=== PATIENT | male | born 1990 | race Two or more races ===

== ENCOUNTER 2022-05-26 15:22 | Inpatient (IN) | payer OTHER ==
[~2022-05-26] VITALS: Ht 172.7 cm; Wt 87.3 kg
[2022-05-26 18:01] LABS: COVID AG,FIA SOURCE NASOPHARYNGEAL
[2022-05-26 18:12] LABS: BASOPHILS % (AUTO) 0.7 % (0.0-2.0); HEMATOCRIT 47.3 % (41-53); HEMOGLOBIN 16.1 g/dL (13.5-17.5); LYMPHOCYTES # (AUTO) 1.3 K/uL (1.0-4.8); LYMPHOCYTES % (AUTO) 24.6 % (22.0-44.0); MEAN CORPUSCULAR HEMOGLOBIN 29.6 pg (26.0-34.0); MEAN CORPUSCULAR VOLUME 87 fL (80-100); MONOCYTES # (AUTO) 0.4 K/uL (0.1-1.0); MONOCYTES % (AUTO) 7.3 % (2.0-9.0); NEUTROPHILS # (AUTO) 3.6 K/uL (1.8-7.7); NEUTROPHILS % (AUTO) 66.4 % (40.0-70.0); PLATELET COUNT (AUTO) 221 K/uL (150-450); RED BLOOD CELL COUNT(AUTO) 5.44 MIL/uL (4.50-5.90); RED CELL DISTRIBUTION WIDTH 13.9 % (11.5-14.5)
[2022-05-26 18:26] LABS: ANION GAP 12 mmol/L (8-16); CALCIUM, TOTAL 8.9 mg/dL (8.8-10.5); CARBON DIOXIDE 27 mmol/L (22-29); CHLORIDE 104 mmol/L (98-107); CREATININE 1.07 mg/dL (0.60-1.30); GLUCOSE,RANDOM 141 mg/dL (70-110); POTASSIUM 3.9 mmol/L (3.5-5.1); SODIUM SERUM 143 mmol/L (136-145); UREA NITROGEN, BLOOD 11 mg/dL (7-18)
[2022-05-26 18:30] LABS: GLOMERULAR FILTR. RATE CALC > 60 mL/min (>60)
[2022-05-26 18:32] LABS: ALANINE AMINOTRANSFERASE 39 U/L (12-78); ALBUMIN 3.9 g/dL (3.4-5.0); ALKALINE PHOSPHATASE 97 U/L (46-116); ASPARTATE AMINOTRANSFERASE 18 U/L (15-37); BILIRUBIN,TOTAL 0.4 mg/dL (0.1-1.0); TOTAL PROTEIN, SERUM 7.1 g/dL (6.4-8.2)
[2022-05-26] MEDS ORDERED: ONDANSETRON HCL 4 MG/2 ML VIAL IVP PRN ×2 (20:30)
[2022-05-26] MEDS ORDERED: MELATONIN 5 MG TABLET PO PRN (20:30)
[2022-05-26] MEDS ORDERED: ACETAMINOPHEN 325 MG TABLET PO PRN (20:30)
[2022-05-26] MEDS: HEPARIN SODIUM,PORCINE 5,000 UNITS/ML VIAL SQ SCH (23:21)
[2022-05-27 08:30] VITALS: BP 117/83
[2022-05-27] MEDS: HEPARIN SODIUM,PORCINE 5,000 UNITS/ML VIAL SQ SCH ×3 (09:45→23:59)
[2022-05-27] MEDS ORDERED: SODIUM CHLORIDE 3% 15 ML NEB SOLUTION NEB ONE (13:11)
[2022-05-27 17:11] VITALS: BP 121/69
[2022-05-27 19:59] VITALS: BP 118/77
[2022-05-28 03:06] LABS: HIV 1-2 SCREEN 4TH GEN W/RFLX Non Reactive (Non Reactive)
[2022-05-28 04:48] VITALS: BP 104/63
[2022-05-28 07:42] VITALS: BP 118/76
[2022-05-28] MEDS: HEPARIN SODIUM,PORCINE 5,000 UNITS/ML VIAL SQ SCH ×3 (08:49→23:22)
[2022-05-28 16:34] VITALS: BP 122/74
[2022-05-28 20:13] VITALS: BP 113/58
[2022-05-29 05:12] VITALS: BP 109/69
[2022-05-29 07:58] VITALS: BP 105/62
[2022-05-29] MEDS: HEPARIN SODIUM,PORCINE 5,000 UNITS/ML VIAL SQ SCH ×2 (09:10→16:10)
[2022-05-29 16:13] VITALS: BP 108/56
[2022-05-29 20:52] VITALS: BP 107/58
[2022-05-30] MEDS: HEPARIN SODIUM,PORCINE 5,000 UNITS/ML VIAL SQ SCH ×3 (00:07→15:25)
[2022-05-30 05:22] VITALS: BP 117/58
[2022-05-30 07:51] VITALS: BP 98/57
[2022-05-30 12:06] LABS: QUANTIFERON, TB GOLD PLUS Positive (Negative)
[2022-05-30 16:26] VITALS: BP 113/67
[2022-05-30 19:35] VITALS: BP 112/68
[2022-05-31] MEDS: HEPARIN SODIUM,PORCINE 5,000 UNITS/ML VIAL SQ SCH ×3 (00:21→16:13)
[2022-05-31 04:15] VITALS: BP 106/68
[2022-05-31 07:32] VITALS: BP 99/71
[2022-05-31 15:47] VITALS: BP 106/66
[2022-05-31 19:49] VITALS: BP 124/68
[2022-06-01] MEDS: HEPARIN SODIUM,PORCINE 5,000 UNITS/ML VIAL SQ SCH ×4 (00:02→23:23)
[2022-06-01 00:16] VITALS: BP 149/84
[2022-06-01 04:43] VITALS: BP 125/65
[2022-06-01 08:02] VITALS: BP 102/69
[2022-06-01 15:43] VITALS: BP 106/60
[2022-06-01 20:05] VITALS: BP 118/83
[2022-06-02 04:25] VITALS: BP 108/58
[2022-06-02 07:42] VITALS: BP 119/79
[2022-06-02] MEDS: HEPARIN SODIUM,PORCINE 5,000 UNITS/ML VIAL SQ SCH ×3 (08:03→22:45)
[2022-06-02] MEDS: ETHAMBUTOL HCL 400 MG TABLET PO SCH (13:52)
[2022-06-02] MEDS: PYRAZINAMIDE 500 MG TABLET PO SCH (13:52)
[2022-06-02] MEDS: PYRIDOXINE HCL 50 MG TABLET PO SCH (13:53)
[2022-06-02] MEDS: ISONIAZID 300 MG TABLET PO SCH (13:53)
[2022-06-02] MEDS: RIFAMPIN 300 MG CAPSULE PO SCH (13:53)
[2022-06-02 15:50] VITALS: BP 116/80
[2022-06-02 20:36] VITALS: BP 121/76
[2022-06-03 05:08] VITALS: BP 111/63
[2022-06-03] MEDS: HEPARIN SODIUM,PORCINE 5,000 UNITS/ML VIAL SQ SCH ×3 (08:00→22:55)
[2022-06-03] MEDS: PYRAZINAMIDE 500 MG TABLET PO SCH (08:00)
[2022-06-03] MEDS: PYRIDOXINE HCL 50 MG TABLET PO SCH (08:00)
[2022-06-03] MEDS: ISONIAZID 300 MG TABLET PO SCH (08:00)
[2022-06-03] MEDS: RIFAMPIN 300 MG CAPSULE PO SCH (08:01)
[2022-06-03] MEDS: ETHAMBUTOL HCL 400 MG TABLET PO SCH (08:01)
[2022-06-03 08:03] VITALS: BP 109/66
[2022-06-03 16:09] VITALS: BP 104/59
[2022-06-03] MEDS: ACETAMINOPHEN 325 MG TABLET PO PRN (20:25)
[2022-06-03 20:35] VITALS: BP 117/74
[2022-06-04 05:18] VITALS: BP 104/71
[2022-06-04 07:21] VITALS: BP 101/72
[2022-06-04] MEDS: PYRAZINAMIDE 500 MG TABLET PO SCH (09:46)
[2022-06-04] MEDS: PYRIDOXINE HCL 50 MG TABLET PO SCH (09:46)
[2022-06-04] MEDS: RIFAMPIN 300 MG CAPSULE PO SCH (09:46)
[2022-06-04] MEDS: ETHAMBUTOL HCL 400 MG TABLET PO SCH (09:46)
[2022-06-04] MEDS: ISONIAZID 300 MG TABLET PO SCH (09:46)
[2022-06-04] MEDS: HEPARIN SODIUM,PORCINE 5,000 UNITS/ML VIAL SQ SCH ×3 (09:47→23:30)
[2022-06-04 15:42] VITALS: BP 110/60
[2022-06-04 19:36] VITALS: BP 126/66
[2022-06-05 04:59] VITALS: BP 111/72
[2022-06-05 07:20] LABS: BASOPHILS % (AUTO) 0.9 % (0.0-2.0); EOSINOPHILS % (AUTO) 3.8 % (1.0-6.0); HEMATOCRIT 47.9 % (41-53); HEMOGLOBIN 16.5 g/dL (13.5-17.5); LYMPHOCYTES # (AUTO) 1.8 K/uL (1.0-4.8); LYMPHOCYTES % (AUTO) 32.3 % (22.0-44.0); MEAN CORPUSCULAR HEMOGLOBIN 30.1 pg (26.0-34.0); MEAN CORPUSCULAR HGB CONC 34.5 G/dL (31.0-37.0); MEAN CORPUSCULAR VOLUME 87 fL (80-100); MONOCYTES # (AUTO) 0.5 K/uL (0.1-1.0); MONOCYTES % (AUTO) 9.6 % (2.0-9.0); NEUTROPHILS # (AUTO) 3.1 K/uL (1.8-7.7); NEUTROPHILS % (AUTO) 53.4 % (40.0-70.0); PLATELET COUNT (AUTO) 213 K/uL (150-450); RED BLOOD CELL COUNT(AUTO) 5.49 MIL/uL (4.50-5.90); RED CELL DISTRIBUTION WIDTH 14.7 % (11.5-14.5)
[2022-06-05 07:36] LABS: ALANINE AMINOTRANSFERASE 129 U/L (12-78); ALBUMIN 3.6 g/dL (3.4-5.0); ALKALINE PHOSPHATASE 99 U/L (46-116); ANION GAP 9 mmol/L (8-16); ASPARTATE AMINOTRANSFERASE 40 U/L (15-37); BILIRUBIN,TOTAL 0.2 mg/dL (0.1-1.0); CALCIUM, TOTAL 9.1 mg/dL (8.8-10.5); CARBON DIOXIDE 25 mmol/L (22-29); CHLORIDE 102 mmol/L (98-107); CREATININE 1.01 mg/dL (0.60-1.30); GLUCOSE,RANDOM 96 mg/dL (70-110); POTASSIUM 4.1 mmol/L (3.5-5.1); SODIUM SERUM 136 mmol/L (136-145); TOTAL PROTEIN, SERUM 7.1 g/dL (6.4-8.2); UREA NITROGEN, BLOOD 11 mg/dL (7-18)
[2022-06-05 07:37] LABS: GLOMERULAR FILTR. RATE CALC > 60 mL/min (>60)
[2022-06-05 08:01] VITALS: BP 110/64
[2022-06-05] MEDS: PYRAZINAMIDE 500 MG TABLET PO SCH (09:10)
[2022-06-05] MEDS: ISONIAZID 300 MG TABLET PO SCH (09:10)
[2022-06-05] MEDS: PYRIDOXINE HCL 50 MG TABLET PO SCH (09:10)
[2022-06-05] MEDS: ETHAMBUTOL HCL 400 MG TABLET PO SCH (09:11)
[2022-06-05] MEDS: RIFAMPIN 300 MG CAPSULE PO SCH (09:11)
[2022-06-05] MEDS: HEPARIN SODIUM,PORCINE 5,000 UNITS/ML VIAL SQ SCH ×3 (09:12→23:27)
[2022-06-05 15:56] VITALS: BP 108/56
[2022-06-05 20:20] VITALS: BP 104/58
[2022-06-06 05:25] VITALS: BP 113/58
[2022-06-06 07:26] VITALS: BP 116/62
[2022-06-06] MEDS: HEPARIN SODIUM,PORCINE 5,000 UNITS/ML VIAL SQ SCH ×2 (08:34→16:28)
[2022-06-06] MEDS: PYRAZINAMIDE 500 MG TABLET PO SCH (08:35)
[2022-06-06] MEDS: PYRIDOXINE HCL 50 MG TABLET PO SCH (08:35)
[2022-06-06] MEDS: ETHAMBUTOL HCL 400 MG TABLET PO SCH (08:35)
[2022-06-06] MEDS: RIFAMPIN 300 MG CAPSULE PO SCH (08:35)
[2022-06-06] MEDS: ISONIAZID 300 MG TABLET PO SCH (08:35)
[2022-06-06 08:39] LABS: BASOPHILS % (AUTO) 1.4 % (0.0-2.0); EOSINOPHILS % (AUTO) 3.2 % (1.0-6.0); HEMATOCRIT 48.1 % (41-53); HEMOGLOBIN 16.8 g/dL (13.5-17.5); LYMPHOCYTES # (AUTO) 1.5 K/uL (1.0-4.8); LYMPHOCYTES % (AUTO) 25.9 % (22.0-44.0); MEAN CORPUSCULAR HEMOGLOBIN 30.4 pg (26.0-34.0); MEAN CORPUSCULAR HGB CONC 34.9 G/dL (31.0-37.0); MEAN CORPUSCULAR VOLUME 87 fL (80-100); MONOCYTES # (AUTO) 0.5 K/uL (0.1-1.0); MONOCYTES % (AUTO) 8.7 % (2.0-9.0); NEUTROPHILS # (AUTO) 3.5 K/uL (1.8-7.7); NEUTROPHILS % (AUTO) 60.8 % (40.0-70.0); PLATELET COUNT (AUTO) 226 K/uL (150-450); RED BLOOD CELL COUNT(AUTO) 5.53 MIL/uL (4.50-5.90); RED CELL DISTRIBUTION WIDTH 14.7 % (11.5-14.5)
[2022-06-06 08:51] LABS: ALANINE AMINOTRANSFERASE 112 U/L (12-78); ALBUMIN 3.7 g/dL (3.4-5.0); ALKALINE PHOSPHATASE 99 U/L (46-116); ANION GAP 9 mmol/L (8-16); ASPARTATE AMINOTRANSFERASE 38 U/L (15-37); BILIRUBIN,TOTAL 0.2 mg/dL (0.1-1.0); CALCIUM, TOTAL 9.3 mg/dL (8.8-10.5); CARBON DIOXIDE 26 mmol/L (22-29); CHLORIDE 102 mmol/L (98-107); CREATININE 0.94 mg/dL (0.60-1.30); GLOMERULAR FILTR. RATE CALC > 60 mL/min (>60); GLUCOSE,RANDOM 98 mg/dL (70-110); SODIUM SERUM 137 mmol/L (136-145); TOTAL PROTEIN, SERUM 7.2 g/dL (6.4-8.2); UREA NITROGEN, BLOOD 10 mg/dL (7-18)
[2022-06-06 16:02] VITALS: BP 110/64
[2022-06-06 19:40] VITALS: BP 140/72
[2022-06-06] MEDS: ACETAMINOPHEN 325 MG TABLET PO PRN (20:31)
[2022-06-07] MEDS: HEPARIN SODIUM,PORCINE 5,000 UNITS/ML VIAL SQ SCH ×4 (00:04→23:53)
[2022-06-07 04:20] VITALS: BP 103/60
[2022-06-07 08:06] LABS: HEPATITIS C AB (EIA) 0.1 s/co ratio (0.0-0.9)
[2022-06-07 08:28] VITALS: BP 110/71
[2022-06-07 08:36] LABS: BASOPHILS % (AUTO) 0.7 % (0.0-2.0); HEMOGLOBIN 16.7 g/dL (13.5-17.5); LYMPHOCYTES # (AUTO) 1.8 K/uL (1.0-4.8); LYMPHOCYTES % (AUTO) 27.2 % (22.0-44.0); MEAN CORPUSCULAR HEMOGLOBIN 29.8 pg (26.0-34.0); MEAN CORPUSCULAR VOLUME 88 fL (80-100); MONOCYTES # (AUTO) 0.5 K/uL (0.1-1.0); MONOCYTES % (AUTO) 7.1 % (2.0-9.0); NEUTROPHILS # (AUTO) 4.1 K/uL (1.8-7.7); PLATELET COUNT (AUTO) 243 K/uL (150-450); RED BLOOD CELL COUNT(AUTO) 5.59 MIL/uL (4.50-5.90); RED CELL DISTRIBUTION WIDTH 14.8 % (11.5-14.5)
[2022-06-07] MEDS: PYRIDOXINE HCL 50 MG TABLET PO SCH (08:37)
[2022-06-07] MEDS: ISONIAZID 300 MG TABLET PO SCH (08:37)
[2022-06-07] MEDS: RIFAMPIN 300 MG CAPSULE PO SCH (08:37)
[2022-06-07] MEDS: ETHAMBUTOL HCL 400 MG TABLET PO SCH (08:38)
[2022-06-07] MEDS: PYRAZINAMIDE 500 MG TABLET PO SCH (08:38)
[2022-06-07 08:53] LABS: ALANINE AMINOTRANSFERASE 98 U/L (12-78); ALBUMIN 3.8 g/dL (3.4-5.0); ALKALINE PHOSPHATASE 95 U/L (46-116); ANION GAP 10 mmol/L (8-16); ASPARTATE AMINOTRANSFERASE 33 U/L (15-37); BILIRUBIN,TOTAL 0.2 mg/dL (0.1-1.0); CALCIUM, TOTAL 9.4 mg/dL (8.8-10.5); CARBON DIOXIDE 25 mmol/L (22-29); CHLORIDE 100 mmol/L (98-107); CREATININE 1.01 mg/dL (0.60-1.30); GLUCOSE,RANDOM 130 mg/dL (70-110); SODIUM SERUM 135 mmol/L (136-145); TOTAL PROTEIN, SERUM 7.3 g/dL (6.4-8.2); UREA NITROGEN, BLOOD 10 mg/dL (7-18)
[2022-06-07 08:54] LABS: GLOMERULAR FILTR. RATE CALC > 60 mL/min (>60)
[2022-06-07 20:20] VITALS: BP 116/74
[2022-06-08 04:37] VITALS: BP 110/64
[2022-06-08 07:44] LABS: BASOPHILS % (AUTO) 0.5 % (0.0-2.0); HEMOGLOBIN 16.3 g/dL (13.5-17.5); LYMPHOCYTES # (AUTO) 1.6 K/uL (1.0-4.8); LYMPHOCYTES % (AUTO) 24.3 % (22.0-44.0); MEAN CORPUSCULAR HEMOGLOBIN 29.8 pg (26.0-34.0); MEAN CORPUSCULAR HGB CONC 34.1 G/dL (31.0-37.0); MEAN CORPUSCULAR VOLUME 88 fL (80-100); MONOCYTES # (AUTO) 0.5 K/uL (0.1-1.0); NEUTROPHILS # (AUTO) 4.2 K/uL (1.8-7.7); NEUTROPHILS % (AUTO) 64.2 % (40.0-70.0); PLATELET COUNT (AUTO) 240 K/uL (150-450); RED BLOOD CELL COUNT(AUTO) 5.48 MIL/uL (4.50-5.90); RED CELL DISTRIBUTION WIDTH 14.9 % (11.5-14.5)
[2022-06-08 07:54] LABS: ALANINE AMINOTRANSFERASE 81 U/L (12-78); ALBUMIN 3.7 g/dL (3.4-5.0); ALKALINE PHOSPHATASE 94 U/L (46-116); ANION GAP 11 mmol/L (8-16); ASPARTATE AMINOTRANSFERASE 22 U/L (15-37); BILIRUBIN,TOTAL 0.2 mg/dL (0.1-1.0); CALCIUM, TOTAL 9.3 mg/dL (8.8-10.5); CARBON DIOXIDE 26 mmol/L (22-29); CHLORIDE 102 mmol/L (98-107); GLUCOSE,RANDOM 97 mg/dL (70-110); POTASSIUM 3.9 mmol/L (3.5-5.1); SODIUM SERUM 139 mmol/L (136-145); TOTAL PROTEIN, SERUM 7.1 g/dL (6.4-8.2); UREA NITROGEN, BLOOD 10 mg/dL (7-18)
[2022-06-08 08:00] LABS: GLOMERULAR FILTR. RATE CALC > 60 mL/min (>60)
[2022-06-08 08:22] VITALS: BP 102/58
[2022-06-08] MEDS: PYRIDOXINE HCL 50 MG TABLET PO SCH (08:49)
[2022-06-08] MEDS: PYRAZINAMIDE 500 MG TABLET PO SCH (08:49)
[2022-06-08] MEDS: ETHAMBUTOL HCL 400 MG TABLET PO SCH (08:50)
[2022-06-08] MEDS: ISONIAZID 300 MG TABLET PO SCH (08:50)
[2022-06-08] MEDS: RIFAMPIN 300 MG CAPSULE PO SCH (08:50)
[2022-06-08] MEDS: HEPARIN SODIUM,PORCINE 5,000 UNITS/ML VIAL SQ SCH (08:50)
[2022-06-08 15:34] VITALS: BP 127/59
[2022-06-08] MEDS ORDERED: ETHA400T33 PO (16:11)
[2022-06-08] MEDS ORDERED: ISON300 PO (16:13)
[2022-06-08] MEDS ORDERED: PYRI-6 PO (16:14)
[2022-06-08] MEDS ORDERED: PYRA500 PO (16:14)
[2022-06-08] MEDS ORDERED: RIFA300 PO (16:16)
== END 2022-06-08 19:40 | DRG 179 ==
LOC: EMS 15:22 → 6S 05-27 06:11
PROVIDERS: ADMIT Internal Medicine; ATTEND Internal Medicine
DX: A15.0 Tuberculosis of lung (principal); Z20.822 Contact with and (suspected) exposure to COVID-19; R73.9 Hyperglycemia, unspecified
CPT/HCPCS: 71045; 71046; 71250; 76705; 80053; 80074; 85025; 86480; 86635; 87015; 87206; 87389; 87556; 94640; 99285; J1644; 36415-L1; 36415-TC